=== PATIENT | male | born 1980 | race Caucasian/White ===

== ENCOUNTER 2018-07-12 15:03 | Emergency (ER) | payer SELFPAY ==
[~2018-07-12] VITALS: Ht 167.6 cm; Wt 61.2 kg
[2018-07-12 15:03] VITALS: BP 126/76
[2018-07-12] MEDS ORDERED: IBUPROFEN 600 MG TABLET PO ONE ×2 (16:00→16:38)
[2018-07-12] MEDS ORDERED: ACETAMINOPHEN ES 500 MG TABLET PO ONE (16:00)
[2018-07-12] MEDS ORDERED: ACETAMINOPHEN ES 500 MG TABLET ONE (16:37)
== END 2018-07-12 21:07 | disposition home or self-care (01) ==
LOC: ER 15:03
DX: S80.12XA Contusion of left lower leg, initial encounter (principal); S09.8XXA Other specified injuries of head, initial encounter; Z59.0 Homelessness; Y00.XXXA Assault by blunt object, initial encounter; Y93.89 Activity, other specified; Y92.89 Other specified places as the place of occurrence of the external cause; Y99.8 Other external cause status
CPT/HCPCS: 70450-TC; 73590-TC